=== PATIENT | male | born 2000 | race Caucasian/White ===

== ENCOUNTER 2023-12-27 20:51 | Observation (INO) | payer OTHER, SELFPAY ==
[2023-12-27 12:54] VITALS: BP 134/89; BMI 27.7
--- NOTE | 2023-12-27 14:33 | ED.GENMED ---
History of Present Illness
General
Chief Complaint: Abdominal Pain
Source: patient
Exam Limitations: none
Time Seen by Provider: 12/27/23 14:00
Nursing documentation reviewed up to this point in time: agreed with
Travel History
Have you had any contact with someone who has COVID-19?: No
Do you have any symptoms of coronavirus? Fever > 100 degrees, chills, cough, shortness of breath, sore throat, loss of taste or smell, muscle aches, or headache?: No
History of Present Illness
History of Present Illness:
23 y/o M with no sig pmh
here with epigastric pain this morning that woke him from [facility] around 5 am
he as able to fall back asleep and then pain was worse
he vomite dx 1 and then nausea resolved
was able to eat his usual meal, he eats the same thing daily
on a number of supplements (vit d 3, calcium, fish oil, panc enzymes, magnesium)
he has been pretty regimented with his health and doesn't like to take medications otherwise
doesn't drink alcohol, no smoking
no h/o pud, gastritis, stress, nsaid use, black stool, diarrhea, constipation
saw his PCP a few mo ago for upper abd pain and was supposed to have US but didn't
Past History
Past History
ED Past Medical History: None
ED Past Surgical History: None
Social History
Tobacco: Non-smoker
Alcohol: None
Drug: None
Personal: Single
Living: with family
Review of Systems
Review of Systems
Allergies reviewed?: Yes
All Other Systems: Not applicable
Phy Exam
Physical Exam
Physical Exam:
GENERAL: Alert , in no apparent distress
EYE: pupils equal and reactive
NECK: Supple
ENT: o/p clr, mmm.
CARDIAC: Regular rate and rhythm .
LUNGS: Clear breath sounds bilaterally, no acute respiratory distress, no wheezes/rales/rhonchi
ABDOMEN: , muscular, flat without focal tenderness, no r/g, no cvat, normal bowel sounds
Negative Gaming sign
NEUROLOGICAL: Alert and oriented, no focal neuro deficits
SKIN: Warm and dry, skin intact.
MUSCULOSKELETAL: No edema, well perfused. neg praneeth's sign
PSYCH: Normal and appropriate interaction.
Course
Orders/Labs/Results
Orders:
Orders
12/27/23 14:32
0.9% Sodium Chloride 1000 ml [Nss] 1,000 ml IV BOLUS
Famotidine [Pepcid] 20 mg IV NOW STA
US Abdomen Complete/Upper Urgent
Comment:
Reason For Exam: upper abd pain
12/27/23 14:36
Complete Blood Count/With Diff Urgent
Comprehensive Metabolic Panel Urgent
Lipase Urgent
12/27/23 16:42
CT Abd/Pel (IV only)-DH only Urgent
Comment:
Reason For Exam: epiigastric pain to RLQ, evla for appe
Morphine Sulfate 4 mg IV NOW STA
12/27/23 18:48
Morphine Sulfate 4 mg .ROUTE .STK-MED ONE
12/27/23 18:49
Morphine Sulfate 4 mg IV NOW STA
12/27/23 19:30
Dextrose 5%/0.9%Sodchl 1000 ml [D5/0.9% Sodium Chloride] 1,000 ml IV 200 mls/hr
12/27/23 20:21
Admit/Transfer Patient As Directed
Co-Sign Provider:
Level of Care: Observation services
Assign to:: Medical/Surgical
Physician / Group: [place]/general surgery
Diagnosis: acute appendictis
12/27/23 20:23
Code Status As Directed
Resuscitation Status: Full Code
Abnormal Lab Results
12/27/23
14:36
WBC 15.3 H 10^3/uL
(4.8-10.8)
Abs Immat Gran (auto) 0.1 H 10^3/uL
(0-0.05)
Absolute Neuts (auto) 12.0 H 10^3/uL
(1.4-6.5)
Absolute Monos (auto) 1.2 H 10^3/uL
(0.1-0.6)
Neutrophils % 78.5 H %
(42.2-75.2)
Lymphocytes % 12.8 L %
(20.5-51.1)
12/27/23 14:36
12/27/23 14:36
Vital Signs
Initial and Last Documented VS:
Initial Vital Signs
Temp Pulse Resp BP Pulse Ox
98.4 F 85 16 134/89 99
12/27/23 12:54 12/27/23 12:54 12/27/23 12:54 12/27/23 12:54 12/27/23 12:54
Last Documented Vital Signs
Temp Pulse Resp BP Pulse Ox
98.5 F 70 17 152/60 98
12/27/23 19:48 12/27/23 19:48 12/27/23 19:48 12/27/23 19:48 12/27/23 19:48
MDM/Problems Addressed
Differential Diagnosis Includes:
gastritis, gerd, cholelithais, PUD, early appendicitis
MDM/Problems Addressed:
23 y/o M with epigastic pain that woke him from sleep this morning with n/v x 1
no fever
nontender
pain felt like burning
treated with pepcid and fluids
wbc 15
US neg
reassesed and now pain in to RLQ with focal tendenresss, pain worse
suspect appe
ct scan ordered and c/w acute appendicitis
d/w dr. kearney from surgery who accepted
*Critical Care Note
Total Time (30-74mins, 75-104mins- exclusive of procedures): Not Applicable
ED Attending Note
-
Portions of this chart may have been created with voice recognition software.� Occasional wrong word or��sound alike� substitutions may have occurred due to the inherent limitations of voice recognition software.
Discharge Plan
Departure
Patient Disposition: Admit
Date of Disposition: 12/27/23
Time of Disposition: 19:33
Admit to: Med/Surg
Admit to doctor: christel
Presentation/result/management discussed w/ accepting MD/DO: christel
Patient with high blood pressure during this ER visit?: No
Condition: Fair
Covid-19: Not Applicable
Discharge Problem:
Acute appendicitis
Interventions
Interventions:
*Risk Screen - Suicide Last Done: 12/27/23 12:54
*General Assessment Last Done: 12/27/23 14:46
*Neglect/Abuse Screening Last Done: 12/27/23 12:54
ED- Fall Risk Assessment Last Done: 12/27/23 12:54
*ED COVID-19 Vaccine History Last Done: 12/27/23 14:44
RJ-Qynmtj-Jjqrwropgj Assessment Last Done: 12/27/23 14:45
[2023-12-27] MEDS: NSS 1000 IV ×2 (14:39→23:25)
[2023-12-27] MEDS: PEPCID 20 MG IV (14:39)
[2023-12-27 14:57] LABS: % Basophils 0.3 % (0-2); % Eosinophils 0.3 % (0-6); % Immature Granulocytes 0.4 % (0-0.5); % Lymphocytes 12.8 % (20.5-51.1); % Monocytes 7.7 % (1.7-9.3); % Neutrophils 78.5 % (42.2-75.2); Absolute Basophils 0.1 10^3/uL (0-0.2); Absolute Immature Granulocytes 0.1 10^3/uL (0-0.05); Absolute Monocytes 1.2 10^3/uL (0.1-0.6); Hematocrit 42.9 % (39.0-52.0); Mean Corpuscular Hgb 30.5 pg (27.0-31.0); Mean Corpuscular Volume 87.4 fL (80.0-94.0); Mean Platelet Volume 9.2 fL (7.4-10.4); Nucleated Red Blood Cells % 0 % (-); Platelet Count 241 10^3/uL (130-400); Red Blood Cell Count 4.91 10^6/uL (4.70-6.10); White Blood Cell Count 15.3 10^3/uL (4.8-10.8)
[2023-12-27 15:05] LABS: ALT (SGPT) 49 U/L (0-50); AST (SGOT) 51 U/L (17-59); Alkaline Phosphatase 67 U/L (38-126); Blood Urea Nitrogen 19 mg/dl (9-20); Calcium 10.2 mg/dl (8.4-10.2); Carbon Dioxide 30 mmol/L (22-30); Chloride 98 mmol/L (98-107); Estimated Creatinine Clearance 119 ml/min; Glucose 99 mg/dl (70-99); Lipase 53 U/L (23-300); Potassium 4.6 mmol/L (3.5-5.1); Sodium 136 mmol/L (135-145); Total Bilirubin 1.1 mg/dl (0.2-1.3); Total Protein 7.8 g/dl (6.3-8.2); eGFR > 60.00
[2023-12-27] MEDS: MORPHINE SULFATE 4 MG IV ×3 (16:48→22:15)
[2023-12-27 19:48] VITALS: BP 152/60
[2023-12-27] MEDS: D5/0.9% SODIUM CHLORIDE 1000 IV (19:48)
--- NOTE | 2023-12-27 20:41 | HPS.HSE ---
Addendum entered and electronically signed by Brandan Chau MD 12/28/23 07:11:
Patient seen and examined.
Patient is a 23 yo M with no pertinent PMH who presents to the ED with 24 hours of RIGHT-sided abdominal pain. Chase states that his symptoms began yesterday afternoon. He describes a pain and discomfort in his RIGHT flank which worsened
throughout the day prompting presentation to the ED. Associated nausea and vomiting x 1. No fevers or chills. No urinary symptoms. No fluctuations in GI, diarrhea or bloody stools. No chronic GI issues. No family history notable for GI
illnesses such as IBD or colon cancer. Currently he feels more comfortable.
Gen: NAD
Abd: soft, tender to palpation in RLQ/flank, ND, non-peritoneal
Labs and imaging were reviewed
Patient is a 23 yo M p/w acute appendicitis
The natural history and pathophysiology of appendicitis was discussed. Anatomy was reviewed. CT scan imaging was reviewed. Options for management including medical management with antibiotics versus surgical management with appendectomy were
considered and discussed. The pros and cons of both approaches was discussed. Specifically, we discussed failure of medical management and future episodes of appendicitis versus surgical risks. Recommend and plan for appendectomy.
Plan for a laparoscopic appendectomy. The procedure itself, as well as the risks, benefits, and alternatives was discussed. Specifically, we discussed the risks of bleeding, infection, injury to surrounding structures (bowel, bladder), staple line
leak, need for open procedure. Typical postprocedural recovery was discussed. All questions answered. Consent signed.
-- Laparoscopic appendectomy
-- Antibiotics: Zosyn
-- NPO, IVF
Original Note:
Family Physician
-
Family Physician: Chase Plata
Chief Complaint
-
abdominal pain
History of Present Illness
This is a very pleasant 23 year old male who comes to the ED with intractable n/v along with burning sensation in his chest which woke him from sleep today. Denies MALONE, SOB, dyspnea, diarrhea, flank pain or dysuria. He lifts weights and has a job
working outside with the [employer] he describes as being very physical. He lifts weights in his spare time, watches his diet carefully, no smoking or drinking alcohol. He had intermittent upper abdominal pain a few months ago and was
to have an ultrasound done but didn't since pain resolved on its own at that time. He takes no outpatient medications except for vitamins and supplements. He feels comfortable as of my interview.
Medical History
Past Medical History
Past Medical History: Reports None
Past Surgical History: Reports None
Social History
Tobacco: Non-smoker
Alcohol: None
Drug: None
Personal: Single
Living: With Family
Employment: Employed
Family History
Family History: Not pertinent
Allergies / Home Medications
Allergies reflects when Allergies were last updated in [employer].
Home Medications with original date entered in [employer]
Allergy/Medication List:
Allergies
Allergy/AdvReac Type Severity Reaction Status Date / Time
No Known Allergies Allergy Verified 12/27/23 12:53
Home Medications
cholecalciferol (vitamin D3) 25 mcg (1,000 unit) tablet 25 mcg PO DAILY 12/27/23
cyanocobalamin (vitamin B-12) 1,000 mcg tablet 1,000 mcg PO DAILY 12/27/23
digestive enzymes 1 tab PO DAILY 12/27/23
magnesium 250 mg tablet 250 mg PO HS 12/27/23
omega 6-itt-bvw-fish oil 1,000 mg (120 mg-180 mg) capsule (Fish Oil) 1 cap PO DAILY 12/27/23
zinc sulfate 50 mg zinc (220 mg) tablet 50 mg PO DAILY 12/27/23
Review of Systems
-
History Source: Patient and Family
A 12 point ROS was completed and negative except as noted: Yes
Constitutional: Reports No Symptoms
EENT: Reports No Symptoms
Respiratory: Reports No Symptoms
Cardiac: Reports No Symptoms
Abdomen/GI: Reports No Symptoms
: Reports No Symptoms
Musculoskeletal: Reports No Symptoms
Skin: Reports No Symptoms
Neurological: Reports No Symptoms
Endocrine: Reports No Symptoms
Hematologic/Lymphatic: Reports No Symptoms
Psych: Reports No Symptoms
Physical Exam
Vital Signs
Vital Signs
Temp Pulse Resp BP Pulse Ox
98.5 F 70 17 152/60 98
12/27/23 19:48 12/27/23 19:48 12/27/23 19:48 12/27/23 19:48 12/27/23 19:48
Physical Exam
General: Well Developed, Well Nourished, No Apparent Distress and Comfortable
HEENT: NormoCephalic, Atraumatic and PERRLA
Respiratory: Clear and Non Labored Respirations
Cardiac: S1/S2 and Regular Rhythm
Breast: Deferred by me
GI: Soft and Tender
Rectal: Deferred by Provider
Genito-urinary: Clear Urine
Musculoskeletal: No Cyanosis, No Edema and Normal Gait & Station
Skin: Warm and Dry
Neuro: Alert, Oriented, No Motor Deficits and Nonfocal/grossly intact
Hematologic/Lymphatic: No Lymphadenopathy
Psych: Calm
Laboratory Results
-
12/27/23 14:36
12/27/23 14:36
Laboratory Results
Total Bilirubin 1.1 mg/dl (0.2-1.3) 12/27/23 14:36
AST 51 U/L (17-59) 12/27/23 14:36
ALT 49 U/L (0-50) 12/27/23 14:36
Alkaline Phosphatase 67 U/L (38-126) 12/27/23 14:36
Lipase 53 U/L (23-300) 12/27/23 14:36
Data Reviewed
-
CT Scan: Report Reviewed by me
Ultrasound: Report Reviewed by me
Lab Data: Labs Reviewed by me
Old Records: Reviewed
Impression/Plan
-
IMPRESSION: Acute appendicitis
PLAN: This is a very pleasant 23 year old male who comes to the ED with intractable n/v along with burning sensation in his chest which woke him from sleep today. Denies MALONE, SOB, dyspnea, diarrhea, flank pain or dysuria. He lifts weights and has a
job working outside with the [employer] he describes as being very physical. He lifts weights in his spare time, watches his diet carefully, no smoking or drinking alcohol. He had intermittent upper abdominal pain a few months ago and
was to have an ultrasound done but didn't since pain resolved on its own at that time. He takes no outpatient medications except for vitamins and supplements. He feels comfortable as of my interview.
*Acute appendicitis: NPO, Zosyn, NS IVF, Morphine prn, Zofran IV prn.
*Leukocytosis: CBC in am to trend.
*DVT prophylaxis: TEDs, SEQ. oob ambulate.
*Disposition: FC Admit to General Surgery service.
[2023-12-27] MEDS: ZOSYN 50 IV (21:10)
[2023-12-27 21:20] VITALS: BP 113/67; BMI 26.8
--- NOTE | 2023-12-27 22:00 | PTCARENOTE ---
Pt arrived to floor via stretcher from the ED. Pt ambulatory to room independently. Pt AAOx3. pt reports ABD pain aching/tender 03/05. Pain medication administered as ordered. Right AC int infusing IVF as ordered. NPO status explained to both pt and
Mother who is at bedside. All questions answered. Call leyva in reach. Will continue to monitor.
[2023-12-27 23:00] VITALS: BP 121/60
[2023-12-28] VITALS (8 sets, daily range): BP systolic 101–135; BP diastolic 51–71
[2023-12-28] MEDS: MORPHINE SULFATE 4 MG IV ×3 (02:07→07:39)
[2023-12-28] MEDS: ZOSYN 50 IV (03:54)
--- NOTE | 2023-12-28 06:08 | PTCARENOTE ---
Pt with intermittent pain t/o the night. Pain medication administered as ordered. IVF continues to infuse NSS@60ml/hr. Friend at bedside overnight. Will continue to monitor.
--- NOTE | 2023-12-28 07:11 | W.SUR.PREOP ---
Pre-Operative Surgical Note
-
I have examined this patient prior to the performance of the scheduled procedure.
The patient's condition is unchanged from the time of the current History and
Physical and the patient is able to undergo the scheduled procedure.
--- NOTE | 2023-12-28 11:06 | SUR.OPER ---
PATIENT SUPINE, RIGHT ARM SECURED ON PADDED ARM BOARD, LEFT ARM TUCKED AT SIDE, FOAM PROTECTING ULNAR SIDE OF FOREARM
--- NOTE | 2023-12-28 11:49 | W.IMMPOSTOP ---
Addendum entered and electronically signed by Brandan Chau MD 12/28/23 11:56:
[facility]# [id number]
Original Note:
Surgical Immed Post Op Note
-
Primary Surgeon: Isac
Assisting Surgeon: None
Pre-op Diagnosis: Acute appendicitis
Post-op Diagnosis: Acute appendicitis
Procedure Performed: Laparoscopic appendectomy
Anesthesia Type: General
Specimen / Cultures:
1. Appendix
Estimated Blood Loss: 3 cc
Complications: None
Operative Findings:
1. Acutely inflamed, dilated, gangrenous tip appendicitis, healthy base, retrocecal making dissection somewhat more challenging
2. Mesentery taken with LigaSure device, base with serrano load stapler
3. Turbid fluid within the pelvis removed with Ray-Allie, plan for 4 days postoperative antibiotics
[2023-12-28] MEDS: ZOSYN IV ×2 (11:57→17:10)
--- NOTE | 2023-12-28 12:50 | PTCARENOTE ---
Pt received from the PACU via bed. Transport was w/o incident. Pt is AAOx, HRR, lungs are clear, resp. easy. Pt reports pain as 'mild' at this time. Will medicate for pain as needed. Pt denies nausea at this time. VSS, pt is afebrile. Plan of care
given to Pt and family. Call leyva is within reach.
--- NOTE | 2023-12-28 15:41 | W.DCSUMMARY ---
Discharge Summary
Discharge Data
Date of Admission: 12/27/23
Date of Discharge: 12/28/23
-
Pending Results: No
Hospital Course
23 yo male who presented with 24 hours of right sided abdominal pain. His exam and imaging were consistent with acute appendicitis and he was taken to the OR for laparoscopic appendectomy. An acutely inflamed, dilated, gangrenous tip appendicitis
was noted intraop without perforation. The patient was discharged with short course of antibiotics for outpatient follow up in the coming weeks.
Discharge Plan
-
Patient Disposition: Home (Routine Discharge)
Discharge Diagnosis/Procedures: Appendicitis status post appendectomy
Condition: Good
Diet: As tolerated and Regular
Activity: No strenuous activity
Additional Activity: Do not lift over 20 lbs for the next 2-3 weeks
Driving Restrictions: No driving for 24 hours
Bathing Restrictions: OK to Shower
Wound Care: There is surgical glue over your incisions which will flake off on its own in 2-3 weeks. Avoid scrubbing or picking off the glue.
Activity Restrictions/Additional Instructions:
Call your surgeon if you have worsening pain, nausea with vomiting or a fever >100.5
Referrals:
Chase Plata PA-C [Family Provider] -
Brandan Chau MD [Active] - in two to three weeks
Additional Discharge Medication Instructions: Alternate taking over the counter tylenol and ibuprofen as needed for pain. If these medications do not relieve your pain, take oxycodone as needed.
Prescriptions:
New
acetaminophen [acetaminophen] 325 mg tablet
650 mg PO Q4HPRN PRN (Reason: mild pain) Qty: 1 0RF
ibuprofen 200 mg tablet
400 - 600 mg PO Q6HPRN PRN (Reason: moderate pain) Qty: 1 0RF
amoxicillin-pot clavulanate 875-125 mg tablet
1 tab PO Q12 Qty: 8 0RF
oxycodone 5 mg tablet
5 mg PO Q4HPRN PRN (Reason: breakthrough/severe pain) Qty: 5 0RF
Continued
digestive enzymes Tablet
1 tab PO DAILY
cyanocobalamin (vitamin B-12) 1,000 mcg Tablet
1,000 mcg PO DAILY
zinc sulfate 50 mg zinc (220 mg) Tablet
50 mg PO DAILY
magnesium 250 mg Tablet
250 mg PO HS
cholecalciferol (vitamin D3) 25 mcg (1,000 unit) Tablet
25 mcg PO DAILY
omega 9-igc-qco-fish oil [Fish Oil] 1,000 mg (120 mg-180 mg) Capsule
1 cap PO DAILY
Discharge Orders:
Discharge Patient (As Directed); Ordered 12/28/23
Ordered By: Aura Thrasher
Discharge Date and Time
Print Language: [place]
--- NOTE | 2023-12-28 16:59 | CM ---
Chart reviewed and patient is for discharge to home today with mother, no needs.
Plan; Home no needs.
== END 2023-12-28 17:06 | disposition home or self-care (01) ==
LOC: 2 SOUTH 20:51
PROVIDERS: Physician Assistant; ADMITTING PHYSICIAN Surgery; EMERGENCY PHYSICIAN Emergency Medicine; FAMILY PHYSICIAN Physician Assistant Medical
DX: K35.891 Other acute appendicitis without perforation, with gangrene (principal); R10.9 Unspecified abdominal pain
CPT/HCPCS: 44970; 88304; 74177; 76700; 80053; 83690; 85025; 96361; 96374; 96375; 96376; 99285; G0378; Q9967

== ENCOUNTER → 2024-02-08 17:50 | Outpatient (REF) | payer OTHER, SELFPAY | LOC: RAD 17:50 | PROVIDERS: ATTENDING PHYSICIAN Physician Assistant Medical | DX: M25.552 Pain in left hip (principal); M25.512 Pain in left shoulder; M25.521 Pain in right elbow | CPT/HCPCS: 73030; 73080; 73502 ==